=== PATIENT | male | born 1970 | race Caucasian/White ===

== ENCOUNTER 2022-07-12 10:46 | Outpatient (CLI) | payer OTHER, SELFPAY ==
--- NOTE | 2022-07-12 11:21 | XR_ITS ---
WS: [email or web address] Left shoulder, 3 views, Clinical Data: M25.512 - Pain in left shoulder Comparison: None. Findings: No fractures or dislocations are seen. The AC joint shows mild osteoarthritis. The adjacent left clav icle, left scapula and ribs are normal. The soft tissues are unremarkable. XR/XR shoulder LT min 2V* [id number] Impression: Mild left AC joint osteoarthritis.
--- NOTE | 2022-07-12 11:21 | XR_ITS ---
WS: [email or web address] Cervical spine, 2 views, 07/12/2022 Clinical Data: M54.2 - Cervicalgia Comparison: Cervical spine, 09/22/2012. Findings: No compression fractures are seen. The disc heights are normal. There is a perineural of th e anterior longitudinal ligament at C4-C5 and C5-C6. There is no prevertebral soft tissue swelling. T he odontoid is unremarkable. The soft tissues of the neck and the lung apices are normal. XR/XR cervical spine 3V* [id number] Impression: Mild osteoarthritis at C4-C5 and C5-C6.
--- NOTE | 2022-07-12 11:21 | XR_ITS ---
WS: [id number] Thoracic spine, AP and lateral views, 07/12/2022 Clinical Data: M54.6 - Pain in thoracic spine Comparison: None. Findings: No compression fractures are seen. The disc heights are normal. There is moderate osteoarthritic change of all the thoracic vertebral bodies. The paravertebral regio ns are normal. XR/XR thoracic spine 3V* [id number] Impression: Moderate osteoarthritis of the thoracic vertebral bodies.
== END 2022-07-12 10:47 | disposition home or self-care (01) ==
LOC: RAD 10:48
PROVIDERS: PCP Nurse Practitioner Family; Visit Provider Nurse Practitioner Family
DX: M47.814 Spondylosis without myelopathy or radiculopathy, thoracic region (principal); M19.012 Primary osteoarthritis, left shoulder; M47.812 Spondylosis without myelopathy or radiculopathy, cervical region
CPT/HCPCS: 72040; 72072; 73030; 80307

== ENCOUNTER 2022-12-26 10:38 | Outpatient (CLI) | payer OTHER, BC, MEDICARE, SELFPAY ==
--- NOTE | 2022-12-26 11:32 | XR_ITS ---
WS: [email or web address] Exam: XR shoulder LT min 2V* [id number] Date/Time of Exam: 12/26/2022 11:50 AM Reason For Exam: ACUTE PAIN OF L SHOULDER No acute fracture or dislocation. Degenerative change in arthrosis at the AC joint. Mild soft tissue calcification along the humeral head which may indicate calcific bursitis and/or tendinitis. XR/XR shoulder LT min 2V* [id number] IMPRESSION: 1. AC joint arthrosis and degenerative change. 2. Soft tissue calcification along the greater humeral tuberosity that might re present calcific tendinitis or bursitis.
--- NOTE | 2022-12-26 11:32 | XR_ITS ---
WS: [email or web address] Exam: XR lumbar spine 2-3V* [id number] Date/Time of Exam: 12/26/2022 11:50 AM Reason For Exam: NECK PAIN No acute fracture or dislocation. L5-S1 laminectomy noted with disc spacer. Mild spondylosis. Posteri or elements are otherwise intact. Bridging osteophytes noted along the anterior aspect of the lumbosa cral junction. XR/XR lumbar spine 2-3V* [id number] IMPRESSION: 1. No fracture or malalignment. 2. L5-S1 laminectomy with disc spacer stable in appearance. 3. Degenerative changes.
--- NOTE | 2022-12-26 11:32 | XR_ITS ---
WS: [email or web address] Exam: XR cervical spine 3V* [id number] Date/Time of Exam: 12/26/2022 11:50 AM Reason For Exam: LUMBAR PAIN Comparison 07/12/2022. No acute fracture or dislocation. Mild spondylosis noted. Posterior elements are intact. The odontoid appears normal. Paraspinal soft tissues are unremarkable. A metallic density resembling that of a sp ring superimposes the lower cervical spine on the AP view and is likely an artifact. XR/XR cervical spine 3V* [id number] IMPRESSION: 1. Minimal degenerative changes. No fracture or malalignment.
== END 2022-12-26 10:39 | disposition home or self-care (01) ==
LOC: RAD 10:41
PROVIDERS: PCP Family Medicine; Visit Provider Nurse Practitioner Family
DX: M54.50 Low back pain, unspecified (principal); M54.2 Cervicalgia; M25.512 Pain in left shoulder; M19.012 Primary osteoarthritis, left shoulder; Z98.890 Other specified postprocedural states; M47.816 Spondylosis without myelopathy or radiculopathy, lumbar region
CPT/HCPCS: 72040; 72100; 73030